=== PATIENT | female | born 1975 ===

== ENCOUNTER 2022-04-27 08:54 | Inpatient (IN) | payer OTHER ==
[~2022-04-27] VITALS: Ht 170.2 cm; Wt 88.5 kg
[2022-04-27] MEDS ORDERED: TOPROL XL50 M1 PO (09:55)
[2022-04-27] MEDS ORDERED: CLONAZEPAM1 MG PO (09:56)
[2022-05-13] MEDS ORDERED: SPRINTEC 28 DA1 EACH (10:49)
== END 2022-05-15 11:16 | disposition home or self-care (01) | DRG 743 ==
LOC: SURG 04-29 07:00 → O/R 05-13 05:40 → OB/GYN 05-13 05:40 → SURG 05-13 08:30 → OB/GYN 05-13 14:13
PROVIDERS: ADMIT Obstetrics & Gynecology; ATTEND Obstetrics & Gynecology
PROC: 0UT74ZZ Resection of Bilateral Fallopian Tubes, Percutaneous Endoscopic Approach (ICD-10-PCS; 2022-05-13)
PROC: 0UT94ZZ Resection of Uterus, Percutaneous Endoscopic Approach (ICD-10-PCS; principal; 2022-05-13 08:30)
DX: D25.9 Leiomyoma of uterus, unspecified (principal); Z20.822 Contact with and (suspected) exposure to COVID-19

== ENCOUNTER 2022-05-11 08:12 | Outpatient (CLI) | payer OTHER ==
[~2022-05-11 08:12] MED LIST: CLONAZEPAM1 MG PO; TOPROL XL50 M1 PO
== END 2022-05-11 23:00 | disposition home or self-care (01) ==
LOC: LAB 08:12
PROVIDERS: ATTEND Obstetrics & Gynecology
DX: Z01.818 Encounter for other preprocedural examination (principal); Z11.52 Encounter for screening for COVID-19